=== PATIENT | male | born 1995 | race African-American/Black ===

== ENCOUNTER 2020-10-24 14:03 | Emergency (ER) | payer MEDICAID ==
[~2020-10-24] VITALS: Ht 182.9 cm; Wt 77.3 kg
[2020-10-24 14:12] VITALS: BP 135/85
[2020-10-24 15:42] LABS: COVID AG,FIA SOURCE NASOPHARYNGEAL
== END 2020-10-24 16:30 | disposition home or self-care (01) ==
LOC: EMS 14:06
DX: R19.7 Diarrhea, unspecified (principal); M79.10 Myalgia, unspecified site; Z20.822 Contact with and (suspected) exposure to COVID-19
CPT/HCPCS: 87426; 99283

== ENCOUNTER 2021-01-03 13:44 | Emergency (ER) | payer MEDICAID ==
[~2021-01-03] VITALS: Ht 182.9 cm; Wt 75.0 kg
[2021-01-03 14:00] VITALS: BP 132/64
[2021-01-03] MEDS ORDERED: IBUPROFEN 600 MG TABLET PO ONE (15:30)
[2021-01-03] MEDS ORDERED: ACETAMINOPHEN 500 MG TABLET PO ONE (15:30)
== END 2021-01-03 16:08 | disposition home or self-care (01) ==
LOC: EMS 14:03
DX: S83.411A Sprain of medial collateral ligament of right knee, initial encounter (principal); W11.XXXA Fall on and from ladder, initial encounter; Y93.89 Activity, other specified; Y92.89 Other specified places as the place of occurrence of the external cause; Y99.8 Other external cause status
CPT/HCPCS: 29505; 99283

== ENCOUNTER 2021-06-18 12:45 | Inpatient (IN) | payer MEDICAID ==
[~2021-06-18] VITALS: Ht 185.4 cm; Wt 65.1 kg
[2021-06-18] MEDS ORDERED: SODIUM CHLORIDE 0.9% 2,000 ML IV ONE (14:15)
[2021-06-18] MEDS ORDERED: BUPRENORPHINE HCL/NALOXONE HCL 8-2 MG SUBLINGUAL TABLET SL ONE (14:15)
[2021-06-18] MEDS ORDERED: ONDANSETRON HCL 4 MG/2 ML VIAL IVP ONE (14:15)
[2021-06-18 14:50] LABS: BASOPHILS % (AUTO) 0.1 % (0.0-2.0); EOSINOPHILS % (AUTO) 0 % (1.0-6.0); HEMATOCRIT 43.1 % (41-53); HEMOGLOBIN 14.2 g/dL (13.5-17.5); LYMPHOCYTES # (AUTO) 1.2 K/uL (1.0-4.8); LYMPHOCYTES % (AUTO) 10.7 % (22.0-44.0); MEAN CORPUSCULAR HEMOGLOBIN 27.5 pg (26.0-34.0); MEAN CORPUSCULAR VOLUME 83 fL (80-100); MONOCYTES # (AUTO) 0.4 K/uL (0.1-1.0); MONOCYTES % (AUTO) 3.7 % (2.0-9.0); NEUTROPHILS # (AUTO) 9.6 K/uL (1.8-7.7); PLATELET COUNT (AUTO) 425 K/uL (150-450); RED BLOOD CELL COUNT(AUTO) 5.17 MIL/uL (4.50-5.90); RED CELL DISTRIBUTION WIDTH 15.1 % (11.5-14.5)
[2021-06-18 14:54] LABS: NEUTROPHILS % (AUTO) 85.5 % (40.0-70.0)
[2021-06-18] MEDS ORDERED: LORazepam 2 MG/ML VIAL IVP ONE (15:00)
[2021-06-18 15:01] LABS: ANION GAP 13 mmol/L (8-16); CALCIUM, TOTAL 10.4 mg/dL (8.8-10.5); CARBON DIOXIDE 29 mmol/L (22-29); CHLORIDE 101 mmol/L (98-107); CREATININE 0.96 mg/dL (0.60-1.30); GLOMERULAR FILTR. RATE CALC > 60 mL/min (>60); GLUCOSE,RANDOM 132 mg/dL (70-110); POTASSIUM 3.3 mmol/L (3.5-5.1); SODIUM SERUM 143 mmol/L (136-145); UREA NITROGEN, BLOOD 21 mg/dL (7-18)
[2021-06-18 15:07] LABS: ALANINE AMINOTRANSFERASE 23 U/L (12-78); ALBUMIN 4.8 g/dL (3.4-5.0); ALKALINE PHOSPHATASE 70 U/L (46-116); ASPARTATE AMINOTRANSFERASE 14 U/L (15-37); BILIRUBIN,TOTAL 0.7 mg/dL (0.1-1.0); TOTAL PROTEIN, SERUM 10.1 g/dL (6.4-8.2)
[2021-06-18] MEDS ORDERED: POTASSIUM CHLORIDE 10% 40 MEQ/30 ML LIQUID UDCUP PO ONE (16:30)
[2021-06-18] MEDS ORDERED: 0.9% SODIUM CHLORIDE 10 ML SYRINGE IVP PRN (16:30)
[2021-06-18] MEDS ORDERED: SODIUM CHLORIDE 0.9% 1,000 ML IV ONE (16:30)
[2021-06-18] MEDS ORDERED: ONDANSETRON HCL 4 MG/2 ML VIAL IVP PRN (16:30)
[2021-06-18] MEDS ORDERED: ACETAMINOPHEN 325 MG TABLET PO PRN (16:30)
[2021-06-18] MEDS ORDERED: LOPERAMIDE HCL 2 MG CAPSULE PO PRN (21:00)
[2021-06-18] MEDS ORDERED: MAGNESIUM SULFATE 2 GM, MVI, ADULT NO.1 WITH VIT K 10 ML, THIAMINE 100 MG, FOLIC ACID 1... IV ONE ×5 (21:00)
[2021-06-18] MEDS ORDERED: DICYCLOMINE HCL 10 MG CAPSULE PO PRN (21:00)
[2021-06-18] MEDS ORDERED: POTASSIUM CHL 10 MEQ/WATER 50 ML IV PRN (21:00)
[2021-06-18] MEDS ORDERED: POTASSIUM CHLORIDE 20 MEQ ER TABLET PO PRN (21:00)
[2021-06-18] MEDS ORDERED: MAGNESIUM SULFATE 4 GM/WATER 100 ML IV PRN (21:00)
[2021-06-18] MEDS ORDERED: MAGNESIUM OXIDE 400 MG TABLET PO PRN (21:00)
[2021-06-18] MEDS ORDERED: MAGNESIUM SULFATE 2 GM/WATER 50 ML IV PRN (21:00)
[2021-06-18 21:35] VITALS: BP 117/86
[2021-06-18] MEDS: TEMAZEPAM 15 MG CAPSULE PO SCH (21:54)
[2021-06-18] MEDS: LORazepam 2 MG/ML VIAL IVP PRN (21:54)
[2021-06-18] MEDS: METOCLOPRAMIDE HCL 5 MG/ML 2 ML VIAL IVP PRN (21:57)
[2021-06-19 04:11] LABS: COVID AG,FIA SOURCE NASOPHARYNGEAL
[2021-06-19] MEDS: METOCLOPRAMIDE HCL 5 MG/ML 2 ML VIAL IVP PRN ×3 (04:15→20:43)
[2021-06-19 04:40] VITALS: BP 126/71
[2021-06-19] MEDS: LORazepam 2 MG/ML VIAL IVP PRN ×3 (07:27→23:31)
[2021-06-19 07:59] VITALS: BP 124/72
[2021-06-19] MEDS ORDERED: PROCHLORPERAZINE MALEATE 25 MG RECTAL SUPPOSITORY PR ONE (16:00)
[2021-06-19] MEDS ORDERED: PROCHLORPERAZINE MALEATE 25 MG RECTAL SUPPOSITORY PR PRN (16:00)
[2021-06-19 16:03] VITALS: BP 110/54
[2021-06-19] MEDS: TEMAZEPAM 15 MG CAPSULE PO SCH (20:29)
[2021-06-19 20:41] VITALS: BP 125/72
[2021-06-20 00:49] VITALS: BP 101/65
[2021-06-20] MEDS ORDERED: MELATONIN 5 MG TABLET PO PRN (03:15)
[2021-06-20 05:06] VITALS: BP 108/72
[2021-06-20 08:01] VITALS: BP 128/73
[2021-06-20] MEDS: METOCLOPRAMIDE HCL 5 MG/ML 2 ML VIAL IVP PRN (08:36)
[2021-06-20] MEDS: LORazepam 2 MG/ML VIAL IVP PRN (08:37)
[2021-06-20] MEDS ORDERED: LORA-1000 PO (13:13)
[2021-06-20] MEDS ORDERED: ONDA-104 PO (13:15)
[2021-06-20] MEDS ORDERED: DICY10 PO (13:17)
[2021-06-20] MEDS ORDERED: TEMA15CA PO (13:17)
[2021-06-20] MEDS ORDERED: MELA1TAB52 PO (13:19)
[2021-06-20] MEDS ORDERED: METO5TAB95 IVP (13:21)
== END 2021-06-20 15:15 | disposition home or self-care (01) | DRG 425 ==
LOC: EMS 12:50 → 6N 20:07
PROVIDERS: ADMIT Hospitalist; ATTEND Hospitalist
DX: E87.6 Hypokalemia (principal); R65.10 Systemic inflammatory response syndrome (SIRS) of non-infectious origin without acute organ dysfunction; F11.23 Opioid dependence with withdrawal; F41.9 Anxiety disorder, unspecified; Z20.822 Contact with and (suspected) exposure to COVID-19; Z65.3 Problems related to other legal circumstances
CPT/HCPCS: 80053; 83735; 85025; 99285; G0480; J2060; J2405; J2765; J3411; J3475; J3490; J7030; Q9967